=== PATIENT | male | born 1990 | race Caucasian/White ===

== ENCOUNTER → 2016-07-30 | Outpatient (REF) | LOC: WSOH 09:30 | DX: Z02.89 Encounter for other administrative examinations (principal) ==

== ENCOUNTER → 2017-09-13 | Outpatient (CLI) | payer BC ==
[2017-09-13 09:30] LABS: HEMATOCRIT 49.1 % (42.0-52.0); HEMOGLOBIN 16.4 g/dl (13.5-18.0); MEAN CELL VOLUME 81 fl (80.0-100.0); MEAN CORPUSCULAR HEMOGLOBIN 27 pg (27.0-31.0); MEAN CORPUSCULAR HGB CONC 33 g/dl (33.0-37.0); MEAN PLATELET VOLUME 9.2 fl (7.4-10.4); PLATELET COUNT 306 K/mm3 (130-400); RED BLOOD COUNT 6.03 M/mm3 (4.20-5.60)
[2017-09-13 09:57] LABS: BAND 7 % (0-10); BASOPHIL 2 % (0-2); EOSINOPHIL 14 % (0-4); LYMPHOCYTE 32 % (20.0-51.0); NEUTROPHILS 38 % (42.0-75.2)
[2017-09-13 10:01] LABS: PLATELET ESTIMATE NORMAL (NORMAL); TOXIC GRANULATION PRESENT
[2017-09-15 20:59] LABS: C-ANCA 8 U/mL (0-99)
== END ==
LOC: COL.LAB 08:51 → COL.RAD 08:51
PROVIDERS: Family Medicine
DX: D72.1 Eosinophilia (principal); R06.2 Wheezing; R06.02 Shortness of breath

== ENCOUNTER 2021-04-03 10:19 | Emergency (ER) | payer BC ==
[~2021-04-03] VITALS: Ht 190.5 cm; Wt 118.2 kg
[2021-04-03 10:35] VITALS: BP 145/91; PULSE 74; TEMP 97.3
[2021-04-03] MEDS ORDERED: CEPHALEXIN500 M1 PO (14:11)
== END 2021-04-03 14:37 | disposition home or self-care (01) ==
LOC: COL.ER 10:19
DX: S61.250A Open bite of right index finger without damage to nail, initial encounter (principal); S61.253A Open bite of left middle finger without damage to nail, initial encounter; W53.11XA Bitten by rat, initial encounter; Y99.0 Civilian activity done for income or pay